=== PATIENT | male | born 1955 | race Caucasian/White ===

== ENCOUNTER 2016-09-08 09:30 | Day surgery (SDC) | payer BC ==
[~2016-09-08] VITALS: Ht 182.9 cm; Wt 86.1 kg
[~2016-09-08 09:30] MED LIST: ALPHA LIPOIC A200 M1 PO; AMARYL4 MG PO; CHROMIUM400 MCG PO; CRESTOR10 MG PO; CRESTOR20 MG PO; FISH OIL 1,0001 EAC7 PO; GLUCOPHAGE1000 MG PO; MILK THISTLE500 MG PO; NALTREXONE HCL50 MG PO; REVIA50 MG PO; TUMORIC PO; VITAMIN D31000 UNIT PO; Vicodin,Norco 5/325 PO; ZETIA10 MG PO
[2016-09-08] MEDS ORDERED: ADVIL,NUPRIN,M200 MG PO (10:07)
[2016-09-08 10:09] VITALS: BP 144/75
[2016-09-08 10:18] LABS: POINT-OF-CARE METER ID UU14174212
[2016-09-08] MEDS ORDERED: PERCOCET 5/31 TABLET PO (14:09)
[2016-09-08 14:31] LABS: POINT-OF-CARE METER ID UU13113675
[2016-09-08 15:54] VITALS: BP 152/81
[2016-09-08 19:09] VITALS: BP 141/76
[2016-09-08 22:53] VITALS: BP 110/68
[2016-09-09 03:23] VITALS: BP 124/62
[2016-09-09 08:27] VITALS: BP 116/62
[2016-09-09 12:21] VITALS: BP 142/68
== END 2016-09-09 13:17 | disposition home or self-care (01) ==
LOC: SDC 09:30 → 2SOUTH 13:59 → SDC 14:46 → 2EAST 15:53
PROVIDERS: Surgery
DX: K43.2 Incisional hernia without obstruction or gangrene (principal); E11.9 Type 2 diabetes mellitus without complications; E78.5 Hyperlipidemia, unspecified; C18.7 Malignant neoplasm of sigmoid colon
CPT/HCPCS: 82948; C1781; G0378; J0131; J0330; J0690; J1100; J1170; J2405; J2710; J3010; J7120